=== PATIENT | female | born 1990 | race American Indian/Alaskan Native ===

== ENCOUNTER 2017-05-13 14:22 | Outpatient (CLI) | payer MEDICAID ==
[2017-05-13] MEDS ORDERED: LACTATED RINGERS 500 ML IV ONE (15:00)
--- NOTE | 2017-05-13 15:27 | Ultrasound Report ---
LIMITED OB ULTRASOUND: Questionable ROM Gestation: [place] Position: Cephalic TERA = 13.5 cm Heart Rate: 153 BPM The estimated gestational age is 34 weeks 4 days.
== END 2017-05-13 16:58 | disposition home or self-care (01) ==
LOC: TRG 14:22
PROVIDERS: ATTEND Obstetrics & Gynecology
DX: Z34.93 Encounter for supervision of normal pregnancy, unspecified, third trimester (principal); Z3A.34 34 weeks gestation of pregnancy
CPT/HCPCS: 59025; 76815

== ENCOUNTER 2017-05-24 18:45 | Outpatient (CLI) | payer MEDICAID ==
[2017-05-24 18:58] VITALS: BP 93/63
[2017-05-24] MEDS ORDERED: LACTATED RINGERS 500 ML IV ONE (20:00)
== END 2017-05-24 19:50 | disposition home or self-care (01) ==
LOC: TRG 18:45
PROVIDERS: ATTEND Obstetrics & Gynecology
DX: Z34.93 Encounter for supervision of normal pregnancy, unspecified, third trimester (principal); Z3A.36 36 weeks gestation of pregnancy

== ENCOUNTER 2017-06-05 10:17 | Outpatient (CLI) | payer MEDICAID ==
[2017-06-05 10:37] VITALS: BP 99/63
--- NOTE | 2017-06-05 11:50 | Event Note ---
Date: 06/05/17 27 year old female presented to L&D triage to rule out SROM. Patient states she woke up this morning and her sheets were wet. She thought it may be urine but she wanted to make sure. Patient is 37 weeks, 6 days gestation. Patient denies vaginal bleeding. She denies labor or contractions. Patient reports active movement. Abdomen is soft, nontender, gravid. Negative nitrazine, negative pooling, negative fern test. SVE 3/70/-2. No regular contractions noted. Patient is not in active labor. Discussed with patient daily movement counting and warning signs of late . Advised patient to follow up at [facility] tomorrow.
== END 2017-06-05 11:20 | disposition home or self-care (01) ==
LOC: TRG 10:17
PROVIDERS: ATTEND Obstetrics & Gynecology
DX: O47.1 False labor at or after 37 completed weeks of gestation (principal); Z3A.38 38 weeks gestation of pregnancy
CPT/HCPCS: 59025

== ENCOUNTER 2017-06-07 12:26 | Outpatient (CLI) | payer MEDICAID ==
[2017-06-07 13:02] VITALS: BP 110/62
--- NOTE | 2017-06-07 14:14 | Ultrasound Report ---
ULTRASOUND BIOPHYSICAL PROFILE: History: well being Technique: Transabdominal ultrasound with Doppler interrogation. 2 - breathing movements 2 - movements 2 - posture and tone 2 - Qualitative amniotic fluid volume 8 - TOTAL SCORE OF POSSIBLE 8 Heart Rate (bpm) 137
--- NOTE | 2017-06-07 14:15 | Ultrasound Report ---
ULTRASOUND OB LIMITED History: well being Technique: Transabdominal ultrasound with Doppler interrogation. Gestation: Single Position: Cephalic Amniotic Fluid: Normal TERA = 11.8 cm Heart Rate: 134 BPM
== END 2017-06-07 15:05 | disposition home or self-care (01) ==
LOC: TRG 12:26
PROVIDERS: ATTEND Obstetrics & Gynecology
DX: O47.1 False labor at or after 37 completed weeks of gestation (principal); Z3A.38 38 weeks gestation of pregnancy
CPT/HCPCS: 59025; 76815; 76819

== ENCOUNTER 2017-06-15 19:39 | Inpatient (IN) | payer MEDICAID ==
[2017-06-15] MEDS ORDERED: BRETHINE SUB-Q PRN (20:17)
[2017-06-15] MEDS ORDERED: STADOL IV PRN (20:17)
[2017-06-15] MEDS ORDERED: SUBLIMAZE IV PRN (20:17)
[2017-06-15] MEDS ORDERED: BRETHINE IVP PRN (20:17)
[2017-06-15] MEDS ORDERED: ePHEDrine SULFATE IV PRN (20:17)
[2017-06-15] MEDS ORDERED: MINERAL OIL PO PRN (20:17)
[2017-06-15] MEDS ORDERED: LACTATED RINGERS 1,000 ML ONE (20:29)
[2017-06-15 20:53] LABS: Hematocrit 33.9 % (30.3-42.9); Hemoglobin 11.3 gm/dl (10.1-14.3); Mean Corpuscular HGB Conc 33 % (30-34); Mean Corpuscular Hemoglobin 29 pg (28-32); Mean Corpuscular Volume 87 fl (79-97); Platelet Count 194 K/mm3 (140-440); Red Blood Count 3.92 M/mm3 (3.65-5.03); White Blood Count 7.6 K/mm3 (4.5-11.0)
[2017-06-15] MEDS ORDERED: XYLOCAINE 2% INFILTRATI ONE (21:00)
[2017-06-15] MEDS ORDERED: LACTATED RINGERS 1,000 ML IV SCH (21:00)
[2017-06-15] MEDS: PITOCin/NS 20 UNIT/1000ML DRIP 20 UNITS/1,000 ML BAG IV SCH ×2 (21:02→22:26)
[2017-06-15] MEDS ORDERED: LANSINOH TP PRN (21:15)
[2017-06-15] MEDS ORDERED: MILK OF MAGNESIA PO PRN (21:15)
[2017-06-15] MEDS ORDERED: PHENERGAN PR PRN (21:15)
[2017-06-15] MEDS ORDERED: BENADRYL PO PRN (21:15)
[2017-06-15] MEDS ORDERED: TUCKS PAD TP PRN (21:15)
--- NOTE | 2017-06-15 21:22 | History and Physical Report ---
History of Present Illness Date of examination: 06/15/17 Date of admission: 06/15/17 19:55 Chief complaint: Intense Labor Pains History of present illness: records are unavailable. States she was a late entry to care and course was complicated by Trichomonas (took ABX ysterday). 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 Social history: no significant social history, single - Obstetrical History Expected Date of Delivery: 06/20/17 Actual Gestation: 39 Week(s) 2 Day(s) : 5 Para: 3 Hx # Term Pregnancies: 2 Number of Pregnancies: 1 Number of Living Children: 3 Medications and Allergies Allergies Allergy/AdvReac Type Severity Reaction Status Date / Time No Known Allergies Allergy Verified 06/09/15 13:49 Home Medications Medication Instructions Recorded Confirmed Last Taken Type Pnv95/Ferrous Fumarate/FA 1 each PO QDAY #60 tablet 11/23/14 06/07/17 1 Day Ago Rx [ Vitamins] ~06/04/17 Active Meds: Active Medications Butorphanol Tartrate (Stadol) 2 mg IV Q2H PRN PRN Reason: Pain , Severe (7-10) Ephedrine Sulfate (Ephedrine Sulfate) 10 mg IV Q2M PRN PRN Reason: Hypotension Fentanyl (Sublimaze) 100 mcg IV Q2H PRN PRN Reason: Labor Pain Ampicillin Sodium (Polycillin/Ns 2 Gm/100 Ml) 2 gm in 100 mls @ 100 mls/hr IV ONCE ONE PRN Reason: Protocol Stop: 06/15/17 22:29 Last Admin: 06/15/17 20:50 Dose: 100 mls/hr Lactated Ringer's (Lactated Ringers) 1,000 mls @ 125 mls/hr IV DIRECT GLADYS Last Admin: 06/15/17 20:49 Dose: 125 mls/hr Oxytocin/Sodium Chloride (Pitocin/Ns 20 Unit/1000ml Drip) 20 units in 1,000 mls @ 125 mls/hr IV DIRECT GLADYS Last Admin: 06/15/17 21:02 Dose: 125 mls/hr Influenza Virus Vaccine Quadrival (Fluarix Quad 0950-1699(36 Mos+) 0.5 ml IM .ONCE ONE Stop: 12/21/17 12:01 Mineral Oil (Mineral Oil) 30 ml PO QHS PRN PRN Reason: Constipation Terbutaline Sulfate (Brethine) 0.25 mg SUB-Q ONCE PRN PRN Reason: Hyperstimulation/Hypertonicity Terbutaline Sulfate (Brethine) 0.25 mg IVP ONCE PRN PRN Reason: Hyperstimulation/Hypertonicity - Vital Signs Vital signs: Vital Signs Pulse BP 88 95/65 06/15/17 20:11 06/15/17 20:11 Temp Pulse Resp BP Pulse Ox 74 93/50 06/15/17 21:13 06/15/17 21:13 - Physical Exam Breasts: Positive: normal Cardiovascular: Regular rate Lungs: Positive: Clear to auscultation, Normal air movement Abdomen: Positive: normal appearance, soft, normal bowel sounds Genitourinary (Female): Positive: normal external genitalia, normal perenium Uterus: Positive: enlarged Anus/Rectum: Positive: normal perianal skin - Obstetrical FHR: category 1 Uterine Contraction Monitor Mode: External Cervical Dilatation: 8 (moderate amount of clear fluid upon AROM at 2051) Cervical Effacement Percentage: 100 station: 0 Uterine Contraction Pattern: Regular Uterine Tone Measurement Phase: Resting Uterine Contraction Intensity: Moderate Results Result Diagrams: 06/15/17 20:20 All other labs normal. Assessment and Plan A: IUP @ 39 2/7 Weeks Active labor Category I Tracing GBS Unknown P: Admit to L&D per routine orders AROM Anticipate
--- NOTE | 2017-06-15 21:27 | Procedure Note ---
OB Delivery Note - Delivery Date of Delivery: 06/15/17 (2058) Surgeon: ANAI LINDER Estimated blood loss: 200cc - Vaginal Delivery presentation: vertex Delivery position: OA Intrapartum events: none Delivery induction: none Delivery augmentation: rupture of membranes Delivery monitor: external FHT, external uterine Route of delivery: Delivery placenta: spontaneous Delivery cord: 3 umbilical vessels Delivery laceration: none Anesthesia: none Delivery comments: of a live 7'0 female over a intact perineum without pain control with Apgars of 8 and 9 at 2058 on 06/15/2017. directly to maternal abd/ chest, skin to skin contact. Spontaneous delivery of placenta complete and intact with [place] side presenting at 2099. Fundus is firm and midline located 4 below the U. Lochia is scant. Delayed cord clamping and cutting. Cord blood collected; placenta discarded. - Infant A at 1 minute: 8 at 5 minutes: 9 Gender: Female (7'0)
[2017-06-15] MEDS ORDERED: POLYCILLIN/NS 2 GM/100 ML 2 GM/100 ML BAG IV ONE (21:30)
[2017-06-15] MEDS: NORCO 5/325 PO PRN (21:50)
[2017-06-15] MEDS ORDERED: SODIUM CHLORIDE FLUSH SYRINGE 10 ML IV NR (22:00)
[2017-06-15] MEDS: MOTRIN PO SCH (22:00)
[2017-06-16] MEDS: NORCO 5/325 PO PRN ×2 (04:18→23:58)
[2017-06-16] MEDS: MOTRIN PO SCH ×4 (04:19→22:39)
--- NOTE | 2017-06-16 04:32 | Progress Note ---
Assessment and Plan A: PP Day #1 Stable P: Follow Routine Orders Depo Provera prior to discharge Plans Essure D/C home in the AM RTO in 6 Weeks Subjective - Subjective Date of service: 06/16/17 Interval history: records are unavailable. States she was a late entry to care and course was complicated by Trichomonas (took ABX ysterday). Patient reports: appetite normal, voiding normally, pain well controlled, flatus , ambulating normally : doing well, bottle feeding Objective - Vital Signs Latest vital signs: Vital Signs Temp Pulse Resp BP Pulse Ox 06/15/17 23:07 98.5 F 66 18 96/48 98 06/15/17 22:30 74 104/51 06/15/17 21:57 73 118/65 06/15/17 21:50 20 06/15/17 21:47 84 109/72 06/15/17 21:45 98.4 F 20 06/15/17 21:27 82 91/52 06/15/17 21:13 74 93/50 06/15/17 20:11 88 95/65 Intake and Output 06/15/17 06/15/17 06/16/17 14:59 22:59 06:59 Intake Total 175 Output Total 400 Balance 175 -400 Intake: IV 175 PITOCin/NS 20 UNIT/1000ML 175 DRIP 20 units In 1,000 ml @ 125 mls/hr IV DIRECT GLADYS Rx#:[id number] Output: Urine 400 Void 400 Other: Total, Output Amount 400 # Voids Void 1 Weight 99.79 kg Estimated Blood Loss 200 Patient Weight 06/16/17 06:59 Weight 99.79 kg - Exam Breasts: Present: normal Cardiovascular: Present: Regular rate Lungs: Present: Clear to auscultation, Normal air movement Abdomen: Present: normal appearance, soft, normal bowel sounds Uterus: Present: normal, firm, fundal height below umbilicus Extremities: Present: normal
[2017-06-16] MEDS ORDERED: DEPO-PROVERA (CONTRACEPTION) IM ONE ×2 (04:34→06:05)
[2017-06-16 09:52] LABS: Hematocrit 30.5 % (30.3-42.9); Hemoglobin 10.1 gm/dl (10.1-14.3)
[2017-06-16] MEDS ORDERED: Fluarix Quad 2017-2018(36 MOS+ IM ONE (12:00)
[2017-06-16] MEDS: PRENATAL VITAMIN PO SCH (12:03)
[2017-06-17] MEDS ORDERED: BOOSTRIX IM ONE (06:00)
[2017-06-17] MEDS: PRENATAL VITAMIN PO SCH (10:00)
[2017-06-17] MEDS: MOTRIN PO SCH ×2 (11:43→17:12)
--- NOTE | 2017-06-17 15:32 | Progress Note ---
Assessment and Plan A: PPD 2 - stable P: Discharge patient to home Continue taking PNV Follow up in 6 weeks for PP exam Subjective - Subjective Date of service: 06/17/17 Principal diagnosis: Patient reports: appetite normal, voiding normally, pain well controlled, ambulating normally [place]: doing well, nursing well, bottle feeding Objective - Vital Signs Latest vital signs: Vital Signs Temp Pulse Resp BP BP Pulse Ox 06/17/17 07:59 98.9 F 64 18 103/57 98 06/17/17 00:00 98.3 F 74 18 105/64 06/16/17 16:12 98.7 F 80 20 95/55 96 Intake and Output 06/16/17 06/17/17 06/17/17 23:59 07:59 15:59 Intake Total 480 840 Balance 480 840 Intake: Oral 480 Intake, Free Water 840 Other: Total, Intake Amount 480 # Voids Void 1 2 - Exam Cardiovascular: Present: Regular rate, Normal S1, Normal S2, No murmurs Lungs: Present: Clear to auscultation, Normal air movement Abdomen: Present: normal appearance, soft Vulva: both: normal Uterus: Present: normal, firm, fundal height below umbilicus Extremities: Present: normal Deep Tendon Reflex Grade: Normal +2
--- NOTE | 2017-06-17 15:35 | Discharge Summary ---
Providers - Providers Date of Admission: 06/15/17 19:55 Date of discharge: 06/17/17 Attending physician: JEREL MCLAUGHLIN MD Primary care physician: JEREL MCLAUGHLIN MD Hospitalization Reason for admission: active labor, IUP at term Delivery: Episiotomy: none Laceration: none Other procedures: none complications: none Discharge diagnosis: IUP at term delivered [place] baby: female Hospital course: Uncomplicated Condition at discharge: Stable Disposition: [id number] TO HOME OR SELFCARE Plan - Provider Discharge Summary Activity: routine, no sex for 6 weeks, no heavy lifting 4 weeks, no strenuous exercise Diet: routine Instructions: routine Additional instructions: [] Smoking cessation referral if applicable(refer to patient education folder for contact #) [] Refer to [facility] Booklet Call your doctor immediately for: * Fever > 100.5 * Heavy vaginal bleeding ( >1 pad per hour) * Severe persistent headache * Shortness of breath * Reddened, hot, painful area to leg or breast * Drainage or odor from incision. * Keep incision clean and dry at all times and follow doctor's instructions regarding bathing/showering - Follow up plan Follow up: JEREL MCLAUGHLIN MD [Primary Care Provider] - 6 Weeks (Follow up in 3 weeks for Essure consult and in 6 weeks for PP exam) Forms: [facility] Discharge Summary
[2017-06-17 17:54] VITALS: BP 95/42
[2017-06-17] MEDS ORDERED: Fluarix Quad 2017-2018(36 MOS+ IM ONE (20:00)
== END 2017-06-17 21:25 | disposition home or self-care (01) | DRG 774 ==
LOC: TRG 19:39 → LD 19:55 → TRG 19:55 → OB 23:25
PROVIDERS: ADMIT Obstetrics & Gynecology; ATTEND Obstetrics & Gynecology
PROC: 10E0XZZ Delivery of Products of Conception, External Approach (ICD-10-PCS; principal; 2017-06-15)
PROC: 10907ZC Drainage of Amniotic Fluid, Therapeutic from Products of Conception, Via Natural or Artificial Opening (ICD-10-PCS; 2017-06-15)
PROC: 3E0234Z Introduction of Serum, Toxoid and Vaccine into Muscle, Percutaneous Approach (ICD-10-PCS; 2017-06-16)
DX: O98.32 Other infections with a predominantly sexual mode of transmission complicating childbirth (principal); O99.52 Diseases of the respiratory system complicating childbirth; Z3A.39 39 weeks gestation of pregnancy; Z37.0 Single live birth; Z23 Encounter for immunization; A59.8 Trichomoniasis of other sites; J45.909 Unspecified asthma, uncomplicated
CPT/HCPCS: 36415; 85014; 85018; 85027; 86592; 86850; 86900; 86901; 90471; 90472; 90686; 90715; 99211; G0463; J0290; J0595; J1050; J2590; J7120